=== PATIENT | female | born 1955 | race Caucasian/White ===

== ENCOUNTER → 2024-12-14 | Outpatient (CLI) | payer MEDICARE, SELFPAY ==
--- NOTE | 2024-12-14 12:46 | CT_ITS ---
PROCEDURE: SINUS/FACIAL BONE REASON FOR EXAM: CHRONIC SINUSITIS W/ POLYPS TECHNIQUE: CT of the paranasal sinuses without contrast. Coronal and Sagittal reconstruction series were provided. One or more dose reduction techniques were used (e.g., Automated exposure control, adjustment of the mA and/or kV according to patient size, use of iterative reconstruction technique). COMPARISON: None. FINDINGS: Frontal: There is complete opacification of the frontal sinuses. There is obstruction of the frontoethmoidal recesses. Ethmoid: There is complete opacification of the ethmoidal air cells. Sphenoid: The right sphenoid sinus is completely opacified. The left sphenoid sinus contains a small amount of air but is otherwise opacified. Maxillary: Status post bilateral antrostomy and uncinectomy and middle turbinectomy. There is lobular mucosal thickening of both maxillary sinuses. Turbinates: Status post middle turbinectomy. There is extensive polyposis within the residual nasal cavity sparing the inferior turbinates. Nasal Septum: There is mild nasal septal deviation to the right. There is thickening of the marie of the paranasal sinuses due to chronic inflammation. Mastoids/Middle Ears: The mastoid air cells and the external, middle and inner ears appear unremarkable. Intracranial contents: There is calcific vascular disease of the intracranial portion of both internal carotid arteries. The brain parenchyma has an unremarkable unenhanced appearance. Intraorbital contents: Normal. Calvarium, skull base, mandible and facial soft tissues: The calvarium and skull base are otherwise unremarkable. The temporomandibular joints are normal. The visualized facial soft tissues are unremarkable. CT/Sinus/Facial Bone IMPRESSION: 1. Chronic nasal polyposis with extensive involvement of the paranasal sinuses as described. There is no significant involvement of the nasopharynx. 2. Status post FESS, as described. Reading Location: [id number]
== END | disposition home or self-care (01) ==
LOC: CT 12:44
PROVIDERS: PCP Internal Medicine; Referring Provider Otolaryngology; Visit Provider Otolaryngology
DX: J32.8 Other chronic sinusitis (principal); J33.9 Nasal polyp, unspecified
CPT/HCPCS: 70486

== ENCOUNTER 2025-01-30 10:00 | Outpatient (CLI) | payer MEDICARE, SELFPAY ==
--- NOTE | 2025-01-31 09:18 | EKG12_ITS ---
Test Reason : PREOP Blood Pressure : */* mmHG Vent. Rate : 97 BPM Atrial Rate : 97 BPM P-R Int : 158 ms QRS Dur : 84 ms QT Int : 352 ms P-R-T Axes : 64 -33 71 degrees QTcB Int : 447 ms Normal sinus rhythm Left axis deviation Abnormal ECG Confirmed by Prakash Wang ([id number]), editor house organ FAVIOLA GONZALEZ ([id number]) on 02/01/2025 1:43:34 PM Referred By: Damon Arana Confirmed By: Prakash Wang
[2025-01-31 09:58] LABS: Hematocrit 38.7 % (37-47); Hemoglobin 12.7 g/dL (12.0-15.0); Mean Corp Hgb Conc 32.8 g/dL (32-36); Mean Corpuscular Volume 87.2 fL (81-99); Mean Platelet Vol. 8.7 fl (6.2-12.0); Platelet Count 217 K/mm3 (150-450); RBC Distribution Width CV 13.9 % (11.6-14.6); RBC Distribution Width SD 44.4 fl (35.1-43.9); Red Blood Count 4.44 M/mm3 (4.2-5.4); White Blood Count 6.5 K/mm3 (4.4-11.0)
[2025-01-31 10:44] LABS: Anion Gap 13 (5-15); BUN 17 mg/dL (4-19); BUN/Creat Ratio 13.9 RATIO (10-20); Calcium,Total 9.5 mg/dL (7.6-11.0); Carbon Dioxide 23.2 mmol/L (21.0-32.0); Chloride 103 mmol/L (98-108); Glucose 140 mg/dL (70-99); Potassium 4.0 mmol/L (3.3-5.1)
--- NOTE | 2025-01-31 17:56 | PAT.ANE_ITS ---
Pre-Assessment Diagnosis/Proposed Procedure Planned Operative Procedure(s): Endoscopic sinus surgery, Maxillary Antrostomy with Navigation Anesthesia History Anesthesia History - managed care nurse: Anesthesia History - managed care nurse Hx Hospitalization No 01/30/25 10:14 Any Problems With Anesthesia No 01/30/25 10:14 Cholinesterase deficiency No 01/30/25 10:14 You/Your Family Experience No 01/30/25 10:14 fever (hyperthermia) with Relationship Recent Exposure to Contagious No 06/02/16 07:16 Disease Does patient have nerve No 01/30/25 10:14 stimulator Patient instructed to have device shut off --Does patient have Pacemaker or ICD? When Was Last Pacemaker Check QUESTION #4 FULL TEXT: You/Your Family Experience fever (hyperthermia) with Anesthesia Last Oral Intake Last Oral intake: Last Oral Intake NPO since Meds taken in AM with sips of water? Meds patient instructed to take am of surgery PONV PONV - managed care nurse: PONV - managed care nurse Female Yes 01/30/25 10:14 HX of Motion Sickness No 01/30/25 10:14 HX of N/V After Surgery No 01/30/25 10:14 Non-Smoker Yes 01/30/25 10:14 Duration of Surgery greater Yes 01/30/25 10:14 than 60 minutes Number of Risk Factors 3 01/30/25 10:14 PONV Score Moderate Risk 01/30/25 10:14 Respiratory Assessment Respiratory Assessment - managed care nurse: Respiratory Tract Infection Hx - managed care nurse Hx Respiratory Tract Infection No 01/30/25 10:14 STOP Sleep Apnea STOP Sleep Apnea - managed care nurse: STOP Sleep Apnea - managed care nurse Hx Hypertension No 01/30/25 10:14 Hx Sleep Apnea No 01/30/25 10:14 CPAP BIPAP Do you snore loudly (louder No 01/30/25 10:14 than talking or can be heard Do you often feel tired/ No 01/30/25 10:14 fatigued/ sleepy during daytime? Has anyone observed you stop No 01/30/25 10:14 breathing during sleep? STOP Results Negative 01/30/25 10:14 QUESTION #5 FULL TEXT : Do you snore loudly (louder than talking or can be heard through closed doors)? 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 Specify any problems Hx of Preganancy in last 3 N/A 01/30/25 10:14 Months Nurse Filling Out Transfusion NBUCHER 01/30/25 10:14 & Questions: Date: 01/30/25 01/30/25 10:14 Time: 10:16 01/30/25 10:14 Patient unable to answer at this time (ie. confused, unrespo /Reproduction History /Reproductive History - managed care nurse: /Reproductive Hx- managed care nurse Hx Now No 01/30/25 10:14 Gestational Age (in weeks): EDC: Hx Hx Para Hx Section SAB No 01/30/25 10:14 [facility] Medical History (Updated 01/30/25 @ 10:23 by Luz Maria Parnell) Wears glasses High cholesterol History of hiatal hernia GERD (gastroesophageal reflux disease) Non-smoker MVP (mitral valve prolapse) Home Medications Medication Instructions Recorded Last Taken Type biotin 1 mg capsule 1 mg PO DAILY 05/27/16 Unkno wn History cetirizine 10 mg capsule (Zyrtec) 10 mg PO QHS 6 06/02/16 06:00 History cholecalciferol (vitamin D3) 250 10,000 unit PO QODAY 05/27/16 Unknown History mcg (10,000 unit) capsule montelukast 10 mg tablet 10 mg PO QHS 05/27/16 Unknow n History omeprazole 10 mg capsule,delayed 10 mg PO DAILY Unknown History release albuterol sulfate 90 mcg/actuation 2 puff inhalation Q 4H PRN PRN 01/30/25 Unknown History aerosol inhaler shortness of breath or wheez ing ezetimibe 10 mg tablet 10 mg PO DAILY 01/30/25 Unkn own History fluticasone propionate 50 1 spray intranasal DAILY PRN 01/30/25 Unknown History mcg/actuation nasal allergy symptoms spray,suspension (24 Hour Allergy Relief) mometasone-formoterol HFA 100 2 puff inhalation BID Unknown History mcg-5 mcg/actuation aerosol inhaler (Dulera) multivitamin (Daily Multi-Vitamin 1 tab PO DAILY 01/30 Unknown History tablet) soy isoflavone-black cohosh 1 cap PO DAILY 01/30/25 Un known History root-magnolia bark 155 mg capsule (Estroven) trazodone 50 mg tablet 50 - 100 mg PO QHS PRN PRN i nsomnia 01/30/25 Unknown History vit 1 tab PO DAILY 01/30/25 Unkn own History [id number] 500 mg-50 mg-25 mg-40 mg tablet (BioAudiolife) Allergy/AdvReac Type Severity Reaction Status Date / Time NSAIDS (Non-Steroidal Allergy Severe Angioedema Verified 01/30/25 10:09 Anti-Inflamma ibuprofen (From Advil) Allergy Swelling Verified 01/30/25 10:08 iodine Allergy Swelling Verified 01/30/25 10:08 moxifloxacin (From Avelox) Allergy Swelling Verified 01/30/25 10:08 naproxen (From Aleve) Allergy Swelling Verified 01/30/25 10:08 sulfamethoxazole (From Allergy Swelling Verified 01/30/25 10:08 Bactrim) trimethoprim (From Bactrim) Allergy Swelling Verified 01/30/25 10:08 Surgical History (Updated 01/30/25 @ 10:23 by Luz Maria Parnell) History of surgery History of gastric bypass History of rhinoplasty History of back surgery History of hysterectomy History of hand surgery History of bilateral knee replacement History of nasal surgery Social History Smoking Status: Never smoker Recommendation Anesthesia Recommendation Anesthesia recommendation: F/U recommended
--- NOTE | 2025-01-31 17:57 | PAT.ANE_ITS ---
Pre-Assessment Diagnosis/Proposed Procedure Planned Operative Procedure(s): Endoscopic sinus surgery, Maxillary Antrostomy with Navigation Anesthesia History Anesthesia History - correspondence specialist: Anesthesia History - correspondence specialist Hx Hospitalization No 01/30/25 10:14 Any Problems With Anesthesia No 01/30/25 10:14 Cholinesterase deficiency No 01/30/25 10:14 You/Your Family Experience No 01/30/25 10:14 fever (hyperthermia) with Relationship Recent Exposure to Contagious No 06/02/16 07:16 Disease Does patient have nerve No 01/30/25 10:14 stimulator Patient instructed to have device shut off --Does patient have Pacemaker or ICD? When Was Last Pacemaker Check QUESTION #4 FULL TEXT: You/Your Family Experience fever (hyperthermia) with Anesthesia Last Oral Intake Last Oral intake: Last Oral Intake NPO since Meds taken in AM with sips of water? Meds patient instructed to take am of surgery PONV PONV - correspondence specialist: PONV - correspondence specialist Female Yes 01/30/25 10:14 HX of Motion Sickness No 01/30/25 10:14 HX of N/V After Surgery No 01/30/25 10:14 Non-Smoker Yes 01/30/25 10:14 Duration of Surgery greater Yes 01/30/25 10:14 than 60 minutes Number of Risk Factors 3 01/30/25 10:14 PONV Score Moderate Risk 01/30/25 10:14 Respiratory Assessment Respiratory Assessment - correspondence specialist: Respiratory Tract Infection Hx - correspondence specialist Hx Respiratory Tract Infection No 01/30/25 10:14 STOP Sleep Apnea STOP Sleep Apnea - correspondence specialist: STOP Sleep Apnea - correspondence specialist Hx Hypertension No 01/30/25 10:14 Hx Sleep Apnea No 01/30/25 10:14 CPAP BIPAP Do you snore loudly (louder No 01/30/25 10:14 than talking or can be heard Do you often feel tired/ No 01/30/25 10:14 fatigued/ sleepy during daytime? Has anyone observed you stop No 01/30/25 10:14 breathing during sleep? STOP Results Negative 01/30/25 10:14 QUESTION #5 FULL TEXT : Do you snore loudly (louder than talking or can be heard through closed doors)? 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 Specify any problems Hx of Preganancy in last 3 N/A 01/30/25 10:14 Months Nurse Filling Out Transfusion NBUCHER 01/30/25 10:14 & Questions: Date: 01/30/25 01/30/25 10:14 Time: 10:16 01/30/25 10:14 Patient unable to answer at this time (ie. confused, unrespo /Reproduction History /Reproductive History - correspondence specialist: /Reproductive Hx- correspondence specialist Hx Now No 01/30/25 10:14 Gestational Age (in weeks): EDC: Hx Hx Para Hx Section SAB No 01/30/25 10:14 [facility] Medical History (Updated 01/30/25 @ 10:23 by Luz Maria Parnell) Wears glasses High cholesterol History of hiatal hernia GERD (gastroesophageal reflux disease) Non-smoker MVP (mitral valve prolapse) Home Medications Medication Instructions Recorded Last Taken Type biotin 1 mg capsule 1 mg PO DAILY 05/27/16 Unkno wn History cetirizine 10 mg capsule (Zyrtec) 10 mg PO QHS 6 06/02/16 06:00 History cholecalciferol (vitamin D3) 250 10,000 unit PO QODAY 05/27/16 Unknown History mcg (10,000 unit) capsule montelukast 10 mg tablet 10 mg PO QHS 05/27/16 Unknow n History omeprazole 10 mg capsule,delayed 10 mg PO DAILY Unknown History release albuterol sulfate 90 mcg/actuation 2 puff inhalation Q 4H PRN PRN 01/30/25 Unknown History aerosol inhaler shortness of breath or wheez ing ezetimibe 10 mg tablet 10 mg PO DAILY 01/30/25 Unkn own History fluticasone propionate 50 1 spray intranasal DAILY PRN 01/30/25 Unknown History mcg/actuation nasal allergy symptoms spray,suspension (24 Hour Allergy Relief) mometasone-formoterol HFA 100 2 puff inhalation BID Unknown History mcg-5 mcg/actuation aerosol inhaler (Dulera) multivitamin (Daily Multi-Vitamin 1 tab PO DAILY 01/30 Unknown History tablet) soy isoflavone-black cohosh 1 cap PO DAILY 01/30/25 Un known History root-magnolia bark 155 mg capsule (Estroven) trazodone 50 mg tablet 50 - 100 mg PO QHS PRN PRN i nsomnia 01/30/25 Unknown History vit 1 tab PO DAILY 01/30/25 Unkn own History [id number] 500 mg-50 mg-25 mg-40 mg tablet (Bioflex) Allergy/AdvReac Type Severity Reaction Status Date / Time NSAIDS (Non-Steroidal Allergy Severe Angioedema Verified 01/30/25 10:09 Anti-Inflamma ibuprofen (From Advil) Allergy Swelling Verified 01/30/25 10:08 iodine Allergy Swelling Verified 01/30/25 10:08 moxifloxacin (From Avelox) Allergy Swelling Verified 01/30/25 10:08 naproxen (From Aleve) Allergy Swelling Verified 01/30/25 10:08 sulfamethoxazole (From Allergy Swelling Verified 01/30/25 10:08 Bactrim) trimethoprim (From Bactrim) Allergy Swelling Verified 01/30/25 10:08 Surgical History (Updated 01/30/25 @ 10:23 by Luz Maria Parnell) History of surgery History of gastric bypass History of rhinoplasty History of back surgery History of hysterectomy History of hand surgery History of bilateral knee replacement History of nasal surgery Social History Smoking Status: Never smoker Audit: Pertinent Findings Pertinent Findings EKG Perinent findings: 05/28/2016 Marked sinus bradycardia (48) Abnormal ECG Recommendation Anesthesia Recommendation Anesthesia recommendation: F/U recommended Follow up Details Consult Recommendation: Yes Consult Rec Details: Recommend Cardiology consult/clearance prior to surgery
== END 2025-01-30 19:00 | disposition home or self-care (01) ==
LOC: SDC 05-25 10:17
PROVIDERS: PCP Internal Medicine; Referring Provider Otolaryngology; Visit Provider Otolaryngology
DX: Z01.810 Encounter for preprocedural cardiovascular examination (principal); R94.31 Abnormal electrocardiogram [ECG] [EKG]
CPT/HCPCS: 36415; 80048; 85027; 93005

== ENCOUNTER 2025-05-29 08:40 | Day surgery (SDC) | payer MEDICARE, SELFPAY ==
[2025-03-20 13:01] LABS: Hematocrit 38.0 % (37-47); Hemoglobin 12.2 g/dL (12.0-15.0); Mean Corp Hgb Conc 32.1 g/dL (32-36); Mean Corpuscular Volume 86.0 fL (81-99); Mean Platelet Vol. 9.2 fl (6.2-12.0); Platelet Count 244 K/mm3 (150-450); RBC Distribution Width CV 13.6 % (11.6-14.6); RBC Distribution Width SD 42.7 fl (35.1-43.9); Red Blood Count 4.42 M/mm3 (4.2-5.4); White Blood Count 5.2 K/mm3 (4.4-11.0)
[2025-03-20 13:43] LABS: Anion Gap 11 (5-15); BUN 14 mg/dL (4-19); BUN/Creat Ratio 15.5 RATIO (10-20); Calcium,Total 9.2 mg/dL (7.6-11.0); Carbon Dioxide 22.7 mmol/L (21.0-32.0); Chloride 107 mmol/L (98-108); Glucose 111 mg/dL (70-99); Potassium 4.6 mmol/L (3.3-5.1)
--- NOTE | 2025-03-21 14:27 | PAT.ANE_ITS ---
Pre-Assessment Diagnosis/Proposed Procedure Planned Operative Procedure(s): Endoscopic sinus surgery, Maxillary Antrostomy with Navigation Anesthesia History Anesthesia History - application support analyst: Anesthesia History - application support analyst Hx Hospitalization No 03/21/25 13:36 Any Problems With Anesthesia No 03/21/25 13:36 Cholinesterase deficiency No 03/21/25 13:36 You/Your Family Experience No 03/21/25 13:36 fever (hyperthermia) with Relationship Recent Exposure to Contagious No 06/02/16 07:16 Disease Does patient have nerve No 03/21/25 13:36 stimulator Patient instructed to have device shut off --Does patient have Pacemaker or ICD? When Was Last Pacemaker Check QUESTION #4 FULL TEXT: You/Your Family Experience fever (hyperthermia) with Anesthesia Last Oral Intake Last Oral intake: Last Oral Intake NPO since Meds taken in AM with sips of water? Meds patient instructed to take am of surgery PONV PONV - application support analyst: PONV - application support analyst Female Yes 03/21/25 13:36 HX of Motion Sickness No 03/21/25 13:36 HX of N/V After Surgery No 03/21/25 13:36 Non-Smoker Yes 03/21/25 13:36 Duration of Surgery greater Yes 03/21/25 13:36 than 60 minutes Number of Risk Factors 3 03/21/25 13:36 PONV Score Moderate Risk 03/21/25 13:36 Height & Weight Height & Weight: Anesthesia: Height & Weight Height 5 ft 5 in 02/10/25 13:52 Respiratory Assessment Respiratory Assessment - application support analyst: Respiratory Tract Infection Hx - application support analyst Hx Respiratory Tract Infection Yes: COUGH/ CONGESTION. 03/21/25 13:[address] MOSER 03/21 STOP Sleep Apnea STOP Sleep Apnea - application support analyst: STOP Sleep Apnea - application support analyst Hx Hypertension No 03/21/25 13:36 Hx Sleep Apnea No 03/21/25 13:36 CPAP BIPAP Do you snore loudly (louder No 03/21/25 13:36 than talking or can be heard Do you often feel tired/ No 03/21/25 13:36 fatigued/ sleepy during daytime? Has anyone observed you stop No 03/21/25 13:36 breathing during sleep? STOP Results Negative 03/21/25 13:36 QUESTION #5 FULL TEXT : Do you snore loudly (louder than talking or can be heard through closed doors)? 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 Specify any problems Hx of Preganancy in last 3 No 03/21/25 13:36 Months Nurse Filling Out Transfusion [id number] 03/21/25 13:36 & Questions: Date: 03/21/25 03/21/25 13:36 Time: 13:37 03/21/25 13:36 Patient unable to answer at this time (ie. confused, unrespo /Reproduction History /Reproductive History - application support analyst: /Reproductive Hx- application support analyst Hx Now Gestational Age (in weeks): EDC: Hx Hx Para Hx Section SAB No 03/21/25 13:36 [facility] Medical History (Updated 03/21/25 @ 13:39 by Delvin Tejada) Cardiology follow-up encounter Preop cardiovascular exam LAFB (left anterior fascicular block) Abnormal EKG High cholesterol History of hiatal hernia GERD (gastroesophageal reflux disease) MVP (mitral valve prolapse) Home Medications Medication Instructions Recorded Last Taken Type biotin 1 mg capsule 1 mg PO DAILY 05/27/16 Unkno wn History cetirizine 10 mg capsule (Zyrtec) 10 mg PO QHS 6 06/02/16 06:00 History cholecalciferol (vitamin D3) 250 10,000 unit PO QODAY 05/27/16 Unknown History mcg (10,000 unit) capsule montelukast 10 mg tablet 10 mg PO QHS 05/27/16 Unknow n History albuterol sulfate 90 mcg/actuation 2 puff inhalation Q 4H PRN PRN 01/30/25 Unknown History aerosol inhaler shortness of breath or wheez ing ezetimibe 10 mg tablet 10 mg PO DAILY 01/30/25 Unkn own History fluticasone propionate 50 1 spray intranasal DAILY PRN 01/30/25 Unknown History mcg/actuation nasal allergy symptoms spray,suspension (24 Hour Allergy Relief) mometasone-formoterol HFA 100 2 puff inhalation BID Unknown History mcg-5 mcg/actuation aerosol inhaler (Dulera) multivitamin (Daily Multi-Vitamin 1 tab PO DAILY 01/30 Unknown History tablet) soy isoflavone-black cohosh 1 cap PO DAILY 01/30/25 Un known History root-magnolia bark 155 mg capsule (Estroven) trazodone 50 mg tablet 50 - 100 mg PO QHS PRN PRN i nsomnia 01/30/25 Unknown Hist ory vit 1 tab PO DAILY 01/30/25 Unkn own History [id number] 500 mg-50 mg-25 mg-40 mg tablet (Bioflex) omeprazole 10 mg capsule,delayed 20 mg PO DAILY Unknown History release Allergy/AdvReac Type Severity Reaction Status Date / Time NSAIDS (Non-Steroidal Allergy Severe Angioedema Verified 03/21/25 13:34 Anti-Inflamma ibuprofen (From Advil) Allergy Swelling Verified 03/21/25 13:34 iodine Allergy Swelling Verified 03/21/25 13:34 moxifloxacin (From Avelox) Allergy Swelling Verified 03/21/25 13:34 naproxen (From Aleve) Allergy Swelling Verified 03/21/25 13:34 sulfamethoxazole (From Allergy Swelling Verified 03/21/25 13:34 Bactrim) trimethoprim (From Bactrim) Allergy Swelling Verified 03/21/25 13:34 Surgical History History of surgery History of gastric bypass History of rhinoplasty History of back surgery History of hysterectomy History of hand surgery History of bilateral knee replacement History of nasal surgery Social History Smoking Status: Never smoker Audit: Pertinent Findings Pertinent Findings EKG Perinent findings: 01/31/2025. Normal sinus rhythm. Left axis deviation. Consult pertinent findings: February 10, 2025. Dr. Marsh. 1. Preop cardiovascular exam-patient is having a low risk procedure. She has no symptoms and her EKG is otherwise benign. She may proceed to surgery with no further testing. 2. Left anterior fascicular block on EKG-she did not impact upcoming surgery. EKGs as needed through primary physician. Recommendation Anesthesia Recommendation Anesthesia recommendation: OPTIMIZED for anesthesia
--- NOTE | 2025-05-19 16:56 | PAT.ANESEVAL ---
Pre-Assessment Diagnosis/Proposed Procedure Planned Operative Procedure(s): Endoscopic sinus surgery, Maxillary Antrostomy with Navigation Anesthesia History Anesthesia History - brand ambassador: Anesthesia History - brand ambassador Hx Hospitalization No 05/17/25 09:32 Any Problems With Anesthesia No 05/17/25 09:32 Cholinesterase deficiency No 05/17/25 09:32 You/Your Family Experience No 05/17/25 09:32 fever (hyperthermia) with Relationship Recent Exposure to Contagious No 06/02/16 07:16 Disease Does patient have nerve No 05/17/25 09:32 stimulator Patient instructed to have device shut off --Does patient have Pacemaker or ICD? When Was Last Pacemaker Check QUESTION #4 FULL TEXT: You/Your Family Experience fever (hyperthermia) with Anesthesia Last Oral Intake Last Oral intake: Last Oral Intake NPO since Meds taken in AM with sips of water? Meds patient instructed to take am of surgery PONV PONV - brand ambassador: PONV - brand ambassador Female Yes 05/17/25 09:32 HX of Motion Sickness No 05/17/25 09:32 HX of N/V After Surgery No 05/17/25 09:32 Non-Smoker Yes 05/17/25 09:32 Duration of Surgery greater Yes 05/17/25 09:32 than 60 minutes Number of Risk Factors 3 05/17/25 09:32 PONV Score Moderate Risk 05/17/25 09:32 Height & Weight Height & Weight: Anesthesia: Height & Weight Height 5 ft 5 in 02/10/25 13:52 Respiratory Assessment Respiratory Assessment - brand ambassador: Respiratory Tract Infection Hx - brand ambassador Hx Respiratory Tract Infection No 05/17/25 09:32 STOP Sleep Apnea STOP Sleep Apnea - brand ambassador: STOP Sleep Apnea - brand ambassador Hx Hypertension No 05/17/25 09:32 Hx Sleep Apnea No 05/17/25 09:32 CPAP BIPAP Do you snore loudly (louder No 05/17/25 09:32 than talking or can be heard Do you often feel tired/ No 05/17/25 09:32 fatigued/ sleepy during daytime? Has anyone observed you stop No 05/17/25 09:32 breathing during sleep? STOP Results Negative 05/17/25 09:32 QUESTION #5 FULL TEXT : Do you snore loudly (louder than talking or can be heard through closed doors)? 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 Specify any problems Hx of Preganancy in last 3 No 05/17/25 09:32 Months Nurse Filling Out Transfusion VCHRISTIN 05/17/25 09:32 & Questions: Date: 05/17/25 05/17/25 09:32 Time: 09:32 11 09:32 Patient unable to answer at this time (ie. confused, unrespo /Reproduction History /Reproductive History - brand ambassador: /Reproductive Hx- brand ambassador Hx Now No 05/17/25 09:32 Gestational Age (in weeks): EDC: Hx Hx Para Hx Section SAB No 05/17/25 09:32 Does the father of the baby or his family experience fever w Father of the baby Malignant Hypertension history comment [facility] Medical History (Updated 05/17/25 @ 09:32 by Jesusita Zavala) History of echocardiogram History of stress test Cardiology follow-up encounter Preop cardiovascular exam LAFB (left anterior fascicular block) Abnormal EKG High cholesterol History of hiatal hernia GERD (gastroesophageal reflux disease) MVP (mitral valve prolapse) Home Medications Medication Instructions Recorded Last Taken Type biotin 1 mg capsule 1 mg PO DAILY 05/27/16 Unknown History cetirizine 10 mg capsule (Zyrtec) 10 mg PO QHS 05/27/16 06/02/16 06:00 History cholecalciferol (vitamin D3) 250 10,000 unit PO QODAY 05/27/16 Unknown History mcg (10,000 unit) capsule montelukast 10 mg tablet 10 mg PO QHS 05/27/16 Unknown History albuterol sulfate 90 mcg/actuation 2 puff inhalation Q4H PRN PRN 01/30/25 Unknown History aerosol inhaler shortness of breath or wheezing ezetimibe 10 mg tablet 10 mg PO DAILY 01/30/25 Unknown History fluticasone propionate 50 1 spray intranasal DAILY PRN 01/30/25 Unknown History mcg/actuation nasal allergy symptoms spray,suspension (24 Hour Allergy Relief) mometasone-formoterol HFA 100 2 puff inhalation BID 01/30/25 Unknown History mcg-5 mcg/actuation aerosol inhaler (Dulera) multivitamin (Daily Multi-Vitamin 1 tab PO DAILY 01/30/25 Unknown History tablet) soy isoflavone-black cohosh 1 cap PO DAILY 01/30/25 Unknown History root-magnolia bark 155 mg capsule (Estroven) trazodone 50 mg tablet 50 - 100 mg PO QHS PRN PRN insomnia 01/30/25 Unknown History vit 1 tab PO DAILY 01/30/25 Unknown History [id number]-[id number]-[id number] 500 mg-50 mg-25 mg-40 mg tablet (Bioflex) omeprazole 10 mg capsule,delayed 20 mg PO DAILY 02/10/25 Unknown History release aspirin 81 mg capsule 81 mg PO DAILY 05/17/25 Unknown History rosuvastatin 20 mg tablet 20 mg PO DAILY 05/17/25 Unknown History Allergy/AdvReac Type Severity Reaction Status Date / Time NSAIDS (Non-Steroidal Allergy Severe Angioedema Verified 05/17/25 09:19 Anti-Inflamma ibuprofen (From Advil) Allergy Swelling Verified 05/17/25 09:19 iodine Allergy Swelling Verified 05/17/25 09:19 moxifloxacin (From Avelox) Allergy Swelling Verified 05/17/25 09:19 naproxen (From Aleve) Allergy Swelling Verified 05/17/25 09:19 sulfamethoxazole (From Allergy Swelling Verified 05/17/25 09:19 Bactrim) trimethoprim (From Bactrim) Allergy Swelling Verified 05/17/25 09:19 Surgical History (Updated 05/17/25 @ 09:32 by Jesusita Zavala) History of cardiac catheterization History of surgery History of gastric bypass History of rhinoplasty History of back surgery History of hysterectomy History of hand surgery History of bilateral knee replacement History of nasal surgery Social History Smoking Status: Never smoker Audit: Pertinent Findings HISTORY of Pertinent Findings History of Pertinent Findings: EKG Pertinent Findings EKG Perinent findings 01/31/2025. Normal sinus 03/21/25 14:29 rhythm. Left axis deviation . Consult Pertinent Findings Consult pertinent findings February 10, 2025. Dr. Marsh. 03/21/25 14:32 1. Preop cardiovascular exam-patient is having a low risk procedure. She has no symptoms and her EKG is otherwise benign. She may proceed to surgery with no further testing. 2. Left anterior fascicular block on EKG-she did not impact upcoming surgery. EKGs as needed through primary physician. Pertinent Findings EKG Perinent findings: 03/28/2025. Sinus bradycardia at 56 bpm. Stress test pertinent findings: 04/19/2025. Mild to moderate medium sized fixed defect involving the mid anterior and anterior lateral wall to the apical anterior and lateral wall. LV is normal in size. Borderline abnormal LV wall motion with a EF estimated greater than 65%. Echo (EF%) pertinent findings: 04/19/2025. EF of 60 to 65%. Normal right ventricular global systolic function. Heart catheterization pertinent findings: 05/18/2025. EF of 55 to 60%. Normal coronaries. Right coronary artery dominance. Consult pertinent findings: 05/12/2025. Dr. Johnston-cardiology. 1. Complaint of chest pain shortness of breath-positive stress test. Plan for cardiac cath. (See cath above) Recommendation Anesthesia Recommendation Anesthesia recommendation: OPTIMIZED for anesthesia
[2025-05-29] VITALS (10 sets, daily range): BP systolic 122–156; BP diastolic 76–92; PULSE 48–64; RESP 12–20; TEMP 36.1–36.6; O2SAT 96–100; BMI 29.1
[2025-05-29] MEDS: Oxymetazoline 0.05% 1 SPRAY SPRAY.BTL 3 SPRAY INTRANASAL (09:51)
[2025-05-29] MEDS: Lactated Ringers 1,000 ML 15 ML IV (09:51)
--- NOTE | 2025-05-29 10:01 | DS.PCM_ITS ---
Providers Primary Care Physician: Dr. Yan Mandujano MD Reason For Visit: Endoscopic Sinus Surgery, Maxillary Antrostomy wit Medications at Discharge Home Medications biotin 1 mg capsule 1 mg PO DAILY 05/27/16 cetirizine 10 mg capsule (Zyrtec) 10 mg PO QHS 05/27/16 cholecalciferol (vitamin D3) 250 mcg (10,000 unit) capsule 10,000 unit PO QODAY 05/27/16 montelukast 10 mg tablet 10 mg PO QHS 05/27/16 albuterol sulfate 90 mcg/actuation aerosol inhaler 2 puff inhalation Q4H PRN PRN shortness of breath or wheezing 01/30/25 ezetimibe 10 mg tablet 10 mg PO DAILY 01/30/25 fluticasone propionate 50 mcg/actuation nasal spray,suspension (24 Hour Allergy Relief) 1 spray intranasal DAILY PRN allergy symptoms 01/30/25 mometasone-formoterol HFA 100 mcg-5 mcg/actuation aerosol inhaler (Dulera) 2 puff inhalation BID 01/30/25 multivitamin (Daily Multi-Vitamin tablet) 1 tab PO DAILY 01/30/25 soy isoflavone-black cohosh root-magnolia bark 155 mg capsule (Estroven) 1 cap PO DAILY 01/30/25 trazodone 50 mg tablet 50 - 100 mg PO QHS PRN PRN insomnia 01/30/25 vit Y-xpccejm-hpadxfxiw-rutin-[id number] 500 mg-50 mg-25 mg-40 mg tablet (Bioflex) 1 tab PO DAILY 01/30/25 omeprazole 10 mg capsule,delayed release 20 mg PO DAILY 02/10/25 rosuvastatin 20 mg tablet 20 mg PO DAILY 05/17/25 Weight / BMI Weight Weight: 79.379 kg Body Mass Index (BMI) 29.1 ABG / Lab / Microbiology Data 03/20/25 11:41 03/20/25 11:41 D/C Instructions Discharge Activity: Return to Normal Activity Additional Activity Instructions: No nose blowing. Start saline irrigation tomorrow. Irrigate 4x/day DC O2, CPAP, BIPAP Needs Home O2 Discharge instructions: No Please Follow Up With: Damon Arana MD When: next week Meaningful Use Info Meaningful Use Meaningful Use Diagnoses (Choose all that apply): None applicable Discharge Plan Admission Attending Provider: Damon Arana Primary Care Provider: Yan Mandujano Instructions Print Language: Upper Sorbian Discharge Orders/Prescriptions Prescriptions: No Action montelukast 10 MG tablet 10 mg PO QHS cholecalciferol (vitamin D3) 10,000 UNIT capsule 10,000 unit PO QODAY Zyrtec 10 MG capsule 10 mg PO QHS biotin 1 MG capsule 1 mg PO DAILY Patient Comments: DOES NOT KNOW DOSAGE omeprazole 10 mg capsule,delayed release(DR/EC) 20 mg PO DAILY rosuvastatin 20 mg tablet 20 mg PO DAILY Estroven 155 mg capsule 1 cap PO DAILY albuterol sulfate 90 mcg/actuation HFA aerosol inhaler 2 puff inhalation Q4H PRN PRN (Reason: shortness of breath or wheezing) Dulera 100-5 mcg/actuation HFA aerosol inhaler 2 puff inhalation BID multivitamin [Daily Multi-Vitamin] Tablet 1 tab PO DAILY trazodone 50 mg tablet 50 - 100 mg PO QHS PRN PRN (Reason: insomnia) fluticasone propionate [24 Hour Allergy Relief] 50 mcg/actuation spray,suspension 1 spray intranasal DAILY PRN (Reason: allergy symptoms) Rx Instructions: administer into each nostril Bioflex 869-70-98-40 mg tablet 1 tab PO DAILY ezetimibe 10 mg tablet 10 mg PO DAILY Referrals / Follow Up: Yan Mandujano MD [Primary Care Provider, Medical] Disposition Disposition (needs filled in before D/C Order can be placed): Home, Self Care
--- NOTE | 2025-05-29 10:05 | PRE.ANES_ITS ---
ASA Classification* ASA Classification ASA Classification: 3 Assessment & Plan Anesthesia* Anesthesia Assessment Anesthesia Assessment: Discussed sedation and/or anesthesia options, risks, benefits, and alternatives with patient/parents/legal guardian/POA. Questions invited. The patient/parents/legal guardian/POA seems to understand and agrees to proceed with anesthesia plan. Reviewed the physical assessment, medical history, allergy history and patient home medications list prior to surgery/procedure/anesthetic and documented any changes. Performed airway and anesthesia risk assessments. Anesthesia Type Anesthesia Type: General History Source History Obtained from:: Patient and Chart Anesthesia Focused Assessment* Temperature: 97.1 F Pulse Rate: 62 Blood Pressure: 122/77 Respiratory Rate: 12 Pulse Ox: 98 Oxygen Delivery Method: Room Air Airway Assessment Mouth opens: >3 cm Mallampati Score: I Teeth Condition: Caps/Crowns (Patient has several crowns. They are tight.) Neck Range of motion (ROM): Full ROM Labs Anesthesia Preop lab: CBC WBC, (4.4-11.0) 5.2 K/mm3 03/20/25, 11:41 RBC, (4.2-5.4) 4.42 M/mm3 03/20/25, 11:41 Hgb, (12.0-15.0) 12.2 g/dL 03/20/25, 11:41 Hct, (37-47) 38.0 % 03/20/25, 11:41 Plt Count, (150-450) 244 K/mm3 03/20/25, 11:41 CHEMISTRY Potassium, (3.3-5.1) 4.6 mmol/L 03/20/25, 11:41 Sodium, (133-145) 140 mmol/L 03/20/25, 11:41 BUN, (4-19) 14 mg/dL 03/20/25, 11:41 Creatinine, (0.70-1.20) 0.92 mg/dL 03/20/25, 11:41 Glucose, (70-99) 111 mg/dL H 03/20/25, 11:41 COAG Pre-Assessment Diagnosis/Proposed Procedure Planned Operative Procedure(s): Endoscopic sinus surgery, Maxillary Antrostomy with Navigation Anesthesia History 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 When Was Last Pacemaker Check QUESTION #4 FULL TEXT: You/Your Family Experience fever (hyperthermia) with Anesthesia Last Oral Intake Last Oral intake: Last Oral Intake NPO since 23:00 05/29/25 09:40 Meds taken in AM with sips of No 05/29/25 09:40 water? Meds patient instructed to take am of surgery PONV PONV - manufacturing sales representative: PONV - manufacturing sales representative Female Yes 05/17/25 09:32 HX of Motion Sickness No 05/17/25 09:32 HX of N/V After Surgery No 05/17/25 09:32 Non-Smoker Yes 05/17/25 09:32 Duration of Surgery greater Yes 05/17/25 09:32 than 60 minutes Number of Risk Factors 3 05/17/25 09:32 PONV Score Moderate Risk 05/17/25 09:32 Height & Weight Height & Weight: Anesthesia: Height & Weight Height 5 ft 5 in 05/29/25 09:40 Weight: 79.379 kg 05/29/25 09:40 Body Mass Index (BMI) 29.1 05/29/25 09:40 Respiratory Assessment Respiratory Assessment - manufacturing sales representative: Respiratory Tract Infection Hx - manufacturing sales representative Hx Respiratory Tract Infection No 05/17/25 09:32 STOP Sleep Apnea STOP Sleep Apnea - manufacturing sales representative: STOP Sleep Apnea - manufacturing sales representative Hx Hypertension No 05/17/25 09:32 Hx Sleep Apnea No 05/17/25 09:32 CPAP BIPAP Do you snore loudly (louder No 05/17/25 09:32 than talking or can be heard Do you often feel tired/ No 05/17/25 09:32 fatigued/ sleepy during daytime? Has anyone observed you stop No 05/17/25 09:32 breathing during sleep? STOP Results Negative 05/17/25 09:32 QUESTION #5 FULL TEXT : Do you snore loudly (louder than talking or can be heard through closed doors)? 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 Specify any problems Hx of Preganancy in last 3 No 05/17/25 09:32 Months Nurse Filling Out Transfusion VCHRISTIN 05/17/25 09:32 & Questions: Date: 05/17/25 05/17/25 09:32 Time: 09:32 05/17/25 09:32 Patient unable to answer at this time (ie. confused, unrespo /Reproduction History /Reproductive History - manufacturing sales representative: /Reproductive Hx- manufacturing sales representative Hx Now No 05/17/25 09:32 Gestational Age (in weeks): EDC: Hx Hx Para Hx Section SAB No 05/17/25 09:32 Does the father of the baby or his family experience fever w Father of the baby Malignant Hypertension history comment Active Medications Active Medications: Current Medications Generic Name Dose Route Start Last Admin Trade Name Freq PRN Reason Stop Dose Admin Lactated Ringer's 1,000 mls @ 15 mls/hr 05/29/25 09:45 05/29/25 09:51 IV 15 mls/hr .Q48H PRIYA Administration PFSH Medical History History of echocardiogram History of stress test Cardiology follow-up encounter Preop cardiovascular exam LAFB (left anterior fascicular block) Abnormal EKG High cholesterol History of hiatal hernia GERD (gastroesophageal reflux disease) MVP (mitral valve prolapse) Home Medications Medication Instructions Recorded Last Taken Type biotin 1 mg capsule 1 mg PO DAILY 05/27/1605/28 History cetirizine 10 mg capsule (Zyrtec) 10 mg PO QHS 6 05/28/25 History cholecalciferol (vitamin D3) 250 10,000 unit PO QODAY 05/27/16 05/28/25 History mcg (10,000 unit) capsule montelukast 10 mg tablet 10 mg PO QHS 05/27/16 History albuterol sulfate 90 mcg/actuation 2 puff inhalation Q 4H PRN PRN 01/30/25 Unknown History aerosol inhaler shortness of breath or wheez ing ezetimibe 10 mg tablet 10 mg PO DAILY 01/30/25 Unkn own History fluticasone propionate 50 1 spray intranasal DAILY PRN 01/30/25 05/28/25 History mcg/actuation nasal allergy symptoms spray,suspension (24 Hour Allergy Relief) mometasone-formoterol HFA 100 2 puff inhalation BID 05/28/25 History mcg-5 mcg/actuation aerosol inhaler (Dulera) multivitamin (Daily Multi-Vitamin 1 tab PO DAILY 01/3005/28/25 History tablet) soy isoflavone-black cohosh 1 cap PO DAILY 01/30/25 History root-magnolia bark 155 mg capsule (Estroven) trazodone 50 mg tablet 50 - 100 mg PO QHS PRN PRN i nsomnia 01/30/25 05/28/25 History vit 1 tab PO DAILY 01/30/2505/13 History S-dywovfs-ximqphfcs-rutin-[id number] 500 mg-50 mg-25 mg-40 mg tablet (Bioflex) omeprazole 10 mg capsule,delayed 20 mg PO DAILY 05/28/25 History release rosuvastatin 20 mg tablet 20 mg PO DAILY 05/17/2505/13 History Allergy/AdvReac Type Severity Reaction Status Date / Time NSAIDS (Non-Steroidal Allergy Severe Angioedema Verified 05/29/25 09:37 Anti-Inflamma ibuprofen (From Advil) Allergy Swelling Verified 05/29/25 09:37 iodine Allergy Swelling Verified 05/29/25 09:37 moxifloxacin (From Avelox) Allergy Swelling Verified 05/29/25 09:37 naproxen (From Aleve) Allergy Swelling Verified 05/17/25 09:19 sulfamethoxazole (From Allergy Swelling Verified 05/29/25 09:37 Bactrim) trimethoprim (From Bactrim) Allergy Swelling Verified 05/29/25 09:37 Surgical History History of cardiac catheterization History of surgery History of gastric bypass History of rhinoplasty History of back surgery History of hysterectomy History of hand surgery History of bilateral knee replacement History of nasal surgery Social History Smoking Status: Never smoker Review of Systems (Anesthesia) ROS Narrative System reviewed and no additional complaints, except as documented.
--- NOTE | 2025-05-29 10:15 | ETH_PTH ---
PATIENT: LEONID SWANN LOC: [facility] [place] U#:[id number] AGE/SX: 69/F ROOM: RE05/29/[address]: Dr. Damon Arana MD : 1955 BED: DIS: 05/29/2025 SPEC #: [id number] RECD: 05/29/25 14:03 STATUS: PORFIRIO REJeremy #: [id number] YODIT: 05/29/25 10:[address]: Damon Arana DEPT: SURGICAL PATHOLOGY RECD BY: Alok Sanchez ENTERED: 05/29/25 14:43 SP TYPE: ETH TISS OTHR DR: Dr. Yan Mandujano MD Tissues: A - Ethmoid sinus, NOS B - Ethmoid sinus, NOS Procedures: Surgery Specimen Level IV HEADER OPERATION: Endoscopic sinus surgery, maxillary antrostomy with Navigation PRE-OP DIAGNOSIS: Hypertrophy of nasal turbinates, nasal polyp, other allergic rhinitis, other specified disorders of eustachian tube, right ear, chronic sinusitis TISSUE SUBMITTED: A- Left sinus contents, B- Right sinus contents MICROSCOPIC DIAGNOSIS A. Left sinus contents, endoscopic sinus surgery, maxillary antrostomy with navigation: * Fragments of benign respiratory type mucosa with mild chronic inflammation and inflammatory nasal polyp(s) B. Right sinus contents endoscopic sinus surgery, maxillary antrostomy with navigation: * Fragments of benign respiratory type mucosa with mild chronic inflammation and inflammatory nasal polyp(s) MICROSCOPIC DESCRIPTION Slides are reviewed. GROSS DESCRIPTION Received in 2 formalin containers labeled with the patient's name and date of . Designated as: A. Left: Sinus content" is a 7.0 x 6.1 x 1.0 cm aggregate of pink-red, foamy blood clot, mucoid material and irregular stelee tissue fragments. Arc Welder sections are submitted in 1 cassette. B. "Right: Sinus content" is a 5.1 x 3.5 x 1.3 cm aggregate of pink-red, foamy blood clot, mucoid material and steele tissue fragments. Arc Welder sections are submitted in 1 cassette. IA 05/29/2025PT:[id number]
[2025-05-29] MEDS: Lactated Ringers 1,000 ML 1000 ML IV (10:44)
[2025-05-29] MEDS: fentaNYL 100 MCG/2 ML Ampul IV (10:44)
[2025-05-29] MEDS: Midazolam 2 MG/2 ML Syringe IV (10:44)
[2025-05-29] MEDS: Lidocaine 1% /Epi 1:100 (20ml) 20 ML Vial (11:20)
[2025-05-29] MEDS: Oxymetazoline 0.05% 1 SPRAY SPRAY.BTL 15 SPRAY (11:21)
--- NOTE | 2025-05-29 11:46 | PCM.OPRPT ---
Operative Report (Standard) Operative Information Date of Procedure: 05/29/25 Pre-Operative Diagnosis: chronic sinusitis with polyposis Post-Operative Diagnosis: same Surgery/Procedure Performed: Bilateral total ethmoidectomy; Bilateral sphenoidotomy; Bilateral maxillary antrostomy; Use of navigation manager housekeeping: No Type of Anesthesia: General RN Documented Start/Stop Times: Operation Date: 05/29/25 10:15 Case Time Into Pre-Op 05/29/25 09:13 Procedure Start Time: 11:04 Procedure Stop Time: 11:44 Select all DRAINS/GRAFTS/IMPLANTS that apply: None Estimated Blood Loss: 10 cc Specimen collected: Yes Description of specimen(s) removed: right and left sinus contents Description of surgery: The patient was taken to the operating room on 05/29/25. The patient was placed in the supine position on the operating table. The patient was given sufficient general endotracheal anesthesia. The head of bed was elevated 30 degrees. The navigation system was placed and verified per protocol and found to be accurate. 0 and 30 degrees rigid nasal endoscopes were used throughout the entire case. The middle turbinate and polyps were injected with 1% lidocaine with epinephrine bilaterally. The right middle turbinate was medialized with a [place] elevator. Polyp was removed from the middle meatus using a sinus shaver. Polyp was removed from maxillary antrum thus recreating an antrostomy. Next, polyp was removed from the anterior and posterior ethmoid with a sinus shaver and 45 degree Blakesley Mainor forceps. Ethmoid cells were verified for relation to the skull base and orbit prior to being entered with the navigation system. The front face of the sphenoid was opened with a suction. Polyps were removed from the front face of the sphenoid re creating the sphenoidotomy. I then placed Afrin pledgets into the sinonasal cavity. Next attention was turned to the left side. Polyp was removed from the area medial to the middle turbinate. The middle turbinate was medialized with a [place] elevator. A large polyp was removed from the middle meatus using a sinus shaver thus recreating the antrostomy. Anterior posterior ethmoidectomy were then carried out using a sinus shaver curette and Blakesley Mainor forceps. Ethmoid cells were verified for relation to the skull base and orbit prior to being entered with the navigation system. There was a polyp occluding the natural sphenoid ostia. This was removed with a sinus shaver. The sphenoid was then opened on the left side using a sinus shaver after being confirmed with navigation. Hemostasis was then achieved using Afrin pledgets. The pledgets were then removed bilaterally and Magda powder was applied bilaterally for absolute hemostasis. The procedure was then terminated. The patient was then awoken and brought to the recovery room in stable condition blood loss less than 10 cc, replacement none. Sponge, needle, instrument count were correct at the end of the procedure. Surgical Findings: polyps bilaterally Complications Complications: No
--- NOTE | 2025-05-29 11:54 | PCM.POST.ANE ---
Anesthesia: Postop Eval I Current Vital Signs Temperature: 97 F Pulse Rate: 61 Blood Pressure: 152/79 Respiratory Rate: 20 Pulse Ox: 96 Assessment Airway patent: Yes Spontaneous unlabored respirations: Yes nausea: No Vomiting: No Anesthesia Complication: No Fluid Hydration Crystalloid volume administer (ml): 700 Total IV fluid infused: 700 Progress Note Anesthesia document: Postop Eval 1 completed: Yes
--- NOTE | 2025-05-29 16:35 | POSTOPAN2_ITS ---
Anesthesia Postop Eval I Sum Postop Eval Completion status Anesthesia document: Postop Eval 1 completed: Yes Anesthesia Postop Eval I Summary Anesthesia Postop Eval I Summary: Anesthesia Postop Eval I: Assessment Summary Airway patent Yes 05/29/25 11:57 WEIGHT ANALYST.CSIR Spontaneous unlabored Yes 05/29/25 11:57 WEIGHT ANALYST.CSIR respirations Mental status nausea No 05/29/25 11:57 WEIGHT ANALYST.CSIR Vomiting No 05/29/25 11:57 WEIGHT ANALYST.CSIR Anesthesia Postop Eval I: Fluid Summary Crystalloid volume administer 700 05/29/25 11:57 WEIGHT ANALYST.CSIR (ml) Colloids volume administered ( ml) Blood Product volume administered (ml) Total IV fluid infused 700 05/29/25 11:57 WEIGHT ANALYST.CSIR Anesthesia Postop Eval I: Summary Notes Anesthesia Complication No 05/29/25 11:57 WEIGHT ANALYST.CSIR Anesthesia Complication Comment: Post-operative progress note Anesthesia: Postop Eval II Evaluation Mental status: Awake and Calm Pain Level: 1 nausea: No Vomiting: No
--- NOTE | 2025-05-29 16:35 | PCM.POSTANE2 ---
Anesthesia Postop Eval I Sum Postop Eval Completion status Anesthesia document: Postop Eval 1 completed: Yes Anesthesia Postop Eval I Summary Anesthesia Postop Eval I Summary: Anesthesia Postop Eval I: Assessment Summary Airway patent Yes 05/29/25 11:57 DEPUTY GENERAL COUNSEL.CSIR Spontaneous unlabored Yes 05/29/25 11:57 DEPUTY GENERAL COUNSEL.CSIR respirations Mental status nausea No 05/29/25 11:57 DEPUTY GENERAL COUNSEL.CSIR Vomiting No 05/29/25 11:57 DEPUTY GENERAL COUNSEL.CSIR Anesthesia Postop Eval I: Fluid Summary Crystalloid volume administer 700 05/29/25 11:57 DEPUTY GENERAL COUNSEL.CSIR (ml) Colloids volume administered ( ml) Blood Product volume administered (ml) Total IV fluid infused 700 05/29/25 11:57 DEPUTY GENERAL COUNSEL.CSIR Anesthesia Postop Eval I: Summary Notes Anesthesia Complication No 05/29/25 11:57 DEPUTY GENERAL COUNSEL.CSIR Anesthesia Complication Comment: Post-operative progress note Anesthesia: Postop Eval II Evaluation Mental status: Awake and Calm Pain Level: 1 nausea: No Vomiting: No
== END 2025-05-29 13:10 | disposition home or self-care (01) ==
LOC: SDC 08:42 → AC 09:51
PROVIDERS: PCP Internal Medicine; Referring Provider Otolaryngology; Visit Provider Otolaryngology
DX: J32.9 Chronic sinusitis, unspecified (principal); J33.9 Nasal polyp, unspecified; J30.89 Other allergic rhinitis; J34.3 Hypertrophy of nasal turbinates; H69.81 Other specified disorders of Eustachian tube, right ear; K21.9 Gastro-esophageal reflux disease without esophagitis; E78.00 Pure hypercholesterolemia, unspecified; Z79.899 Other long term (current) drug therapy
CPT/HCPCS: 31257; 31267; 61782; 00160; 36415; 80048; 85027; 88305; J2405